=== PATIENT | female | born 1990 | race Caucasian/White ===

== ENCOUNTER 2024-01-20 15:09 | Emergency (ER) | payer MEDICAID ==
[~2024-01-20] VITALS: Ht 165.1 cm; Wt 90.0 kg
[2024-01-20 15:12] VITALS: O2SAT 98
[2024-01-20] MEDS: HYDROCODONE/ACETAMINOPHEN 5/325MG TABLET PO STA (15:51)
[2024-01-20 16:23] LABS: BASOPHILS % 0.7 % (0.0-2.0); DIFFERENTIAL COMMENT 0; HEMATOCRIT. 38.2 % (36.0-48.0); HEMOGLOBIN. 12.9 g/dL (12.0-16.0); LYMPHOCYTES % 32.7 % (20.0-50.0); MEAN CORPUSCULAR HEMOGLOBIN 25.9 pg (28.0-32.0); MEAN CORPUSCULAR HGB CONC 33.9 g/dL (31.0-37.0); MEAN CORPUSCULAR VOLUME 76.4 fL (81.0-99.0); MEAN PLATELET VOLUME 8.7 fl (7.4-10.4); MONOCYTES % 6.3 % (2.0-8.0); NEUTROPHILS % 59.3 % (40.0-76.0); PLATELET 291 x1000/uL (130-400); RED BLOOD CELL COUNT 4.99 mill/uL (4.2-5.4); RED CELL DISTRIBUTION WIDTH 15.3 % (11.6-14.6); WHITE BLOOD COUNT 6.6 x1000/uL (4.5-11.0)
[2024-01-20 16:29] LABS: CHLORIDE 104 mEq/L (98-107); HCG SCREEN NEGATIVE; POTASSIUM 3.7 mEq/L (3.5-5.1); SODIUM 138 mEq/L (136-145)
[2024-01-20 16:30] LABS: CARBON DIOXIDE 27 mEq/L (21-32)
[2024-01-20 16:31] LABS: CALCIUM 9.4 mg/dL (8.7-10.4); PROTHROMBIN TIME 11.2 sec (9.6-11.0)
[2024-01-20 16:35] LABS: CREATININE 0.7 mg/dL (0.6-1.0); GLUCOSE 97 mg/dL (70-105)
[2024-01-20 16:36] LABS: UREA NITROGEN BLOOD 9 mg/dL (9-23)
[2024-01-20 17:00] LABS: TROPONIN I HIGH SENSITIVITY < 4 ng/L (3.0-34)
[2024-01-20] MEDS ORDERED: IBUP-2029 MT (17:56)
[2024-01-20 18:13] VITALS: BP 102/55; PULSE 72; RESP 15; TEMP 36.94740; O2SAT 98
== END 2024-01-20 18:14 | disposition home or self-care (01) ==
LOC: ER 15:09
DX: R07.89 Other chest pain (principal); E11.9 Type 2 diabetes mellitus without complications
CPT/HCPCS: 80048; 84703; 83880; 83690; 85025; 85610; 84484; 36415; 71045; 93005; 99285; Z7610

== ENCOUNTER 2024-05-04 01:29 | Emergency (ER) | payer MEDICAID, OTHER ==
[~2024-05-04] VITALS: Ht 165.1 cm; Wt 111.4 kg
[~2024-05-04 01:29] MED LIST: IBUP-2029 MT
[2024-05-04 01:51] VITALS: O2SAT 100
[2024-05-04 01:55] VITALS: BP 116/65; PULSE 86; RESP 18; TEMP 97.9; O2SAT 100
[2024-05-04 02:51] LABS: BASOPHILS % 0.5 % (0.0-2.0); DIFFERENTIAL COMMENT 0; EOSINOPHILS % 1.1 % (0.0-5.0); HEMATOCRIT. 36.3 % (36.0-48.0); HEMOGLOBIN. 12.2 g/dL (12.0-16.0); LYMPHOCYTES % 27.8 % (20.0-50.0); MEAN CORPUSCULAR HEMOGLOBIN 26.2 pg (28.0-32.0); MEAN CORPUSCULAR HGB CONC 33.5 g/dL (31.0-37.0); MEAN CORPUSCULAR VOLUME 78.1 fL (81.0-99.0); MEAN PLATELET VOLUME 8.7 fl (7.4-10.4); MONOCYTES % 5.6 % (2.0-8.0); PLATELET 323 x1000/uL (130-400); RED BLOOD CELL COUNT 4.64 mill/uL (4.2-5.4); RED CELL DISTRIBUTION WIDTH 15.5 % (11.6-14.6); WHITE BLOOD COUNT 8.4 x1000/uL (4.5-11.0)
[2024-05-04 02:53] LABS: CHLORIDE 106 mEq/L (98-107); POTASSIUM 4.3 mEq/L (3.5-5.1); SODIUM 140 mEq/L (136-145)
[2024-05-04 02:54] LABS: CARBON DIOXIDE 27 mEq/L (21-32)
[2024-05-04 02:55] LABS: CALCIUM 9.6 mg/dL (8.7-10.4)
[2024-05-04 02:59] LABS: CREATININE 0.8 mg/dL (0.6-1.0); GLUCOSE 181 mg/dL (70-105)
[2024-05-04 03:00] LABS: UREA NITROGEN BLOOD 14 mg/dL (9-23)
[2024-05-04 03:01] LABS: ALANINE AMINOTRANSFERASE 36 IU/L (10-49); ALBUMIN 4.4 g/dL (3.2-4.8); ASPARTATE AMINOTRANSFERASE 28 IU/L (<34)
[2024-05-04 03:02] LABS: BILIRUBIN DIRECT 0.2 mg/dL (<=3.0); BILIRUBIN TOTAL 0.7 mg/dL (0.1-1.0); PROTEIN TOTAL 7.4 g/dL (6.0-8.3)
[2024-05-04] MEDS: ACETAMINOPHEN 325MG TABLET PO ONE (03:33)
[2024-05-04] MEDS: ONDANSETRON HCL 4MG TABLET PO ONE (03:33)
[2024-05-04 04:21] LABS: HCG SCREEN NEGATIVE
== END 2024-05-04 04:40 | disposition left against medical advice (07) ==
LOC: ER 01:29
DX: R10.11 Right upper quadrant pain (principal); R11.2 Nausea with vomiting, unspecified
CPT/HCPCS: 76705; 80076; 80048; 84703; 83690; 85025; 36415; Q0162